=== PATIENT | female | born 1985 | race Caucasian/White ===

== ENCOUNTER 2017-12-02 18:20 | Emergency (ER) | payer SELFPAY ==
[2017-12-02] MEDS ORDERED: ONDANSETRON HCL INJ/PF 4 MG/2 ML SDV IV ONE (19:11)
[2017-12-02] MEDS ORDERED: MORPHINE SULFATE 10 MG/ML INJ IV ONE (19:11)
[2017-12-02] MEDS ORDERED: NORMAL SALINE 1000 ML 1,000 ML IV PRN (19:11)
--- NOTE | 2017-12-02 19:13 | ER Document Report ---
ED Medical Screen (RME) - General Chief Complaint: Vaginal Bleeding Stated Complaint: VAGINAL BLEEDING Time Seen by Provider: 12/02/17 19:06 Notes: 32 years old female presents today with 15 days. Prior to that she had regular. Comes on on time last for about 4-5 days. Never had this extensive bleeding. The bleeding is associated with lower abdominal cramp. She has history of anemia. Feeling lightheaded and dizzy. On examination-conjunctivae is normal is not pale. Abdomen is nontender. TRAVEL OUTSIDE OF THE [place] IN LAST 30 DAYS: No - Related Data Allergies/Adverse Reactions: levofloxacin [From Levaquin] Allergy (Severe, Verified 12/02/17 18:22) Anaphylaxis Sulfa (Sulfonamide Antibiotics) Allergy (Severe, Verified 12/02/17 18:22) Anaphylaxis tramadol [Tramadol] Allergy (Severe, Verified 12/02/17 18:22) anaphylaxis, hives citalopram hydrobromide [From Celexa] Allergy (Mild, Verified 12/02/17 18:22) latex [Latex] Allergy (Mild, Verified 12/02/17 18:22) Urticaria quetiapine fumarate [From Seroquel] Allergy (Mild, Verified 12/02/17 18:22) Lock jaw trazodone [Trazodone] Allergy (Mild, Verified 12/02/17 18:22) Lock jaw eszopiclone [From Lunesta] Allergy (Verified 12/02/17 18:22) meperidine HCl [From Mepergan] Allergy (Verified 12/02/17 18:22) promethazine HCl [From Mepergan] Allergy (Verified 12/02/17 18:22) aspirin [Aspirin] Adverse Reaction (Mild, Verified 12/02/17 18:22) "thins her blood" per pt. ibuprofen [From Motrin] Adverse Reaction (Mild, Verified 12/02/17 18:22) upset stomach NSAIDS (Non-Steroidal Anti-Inflamma [Nsaids] Adverse Reaction (Mild, Verified 18:22) Nausea Past Medical History - General Last Menstrual Period: continues - Social History Chew tobacco use (# tins/day): No Frequency of alcohol use: Rare Drug Abuse: Marijuana - Past Medical History Cardiac Medical History: Reports: Hx Hypertension Denies: Hx Atrial Fibrillation, Hx Coronary Artery Disease, Hx Heart Attack Pulmonary Medical History: Denies: Hx Asthma, Hx Bronchitis, Hx COPD, Hx Pneumonia Neurological Medical History: Denies: Hx Cerebrovascular Accident, Hx Seizures Renal/ Medical History: Reports: Hx Kidney Stones, Hx Ovarian Cysts. Denies: Hx Peritoneal Dialysis GI Medical History: Reports: Hx Diverticulitis, Hx Gastroesophageal Reflux Disease Musculoskeltal Medical History: Denies Hx Arthritis Psychiatric Medical History: Reports: Hx Anxiety, Hx Attention Deficit Hyperactivity Disorder, Hx Bipolar Disorder, Hx Depression Past Surgical History: Reports: Hx Section, Hx Cholecystectomy, Hx Kidney (Renal Surgery) - cystoscopy, lithotripsy, Hx Tubal Ligation - Immunizations Immunizations up to date: Yes Hx Diphtheria, Pertussis, Tetanus Vaccination: Yes Physical Exam - Vital signs Vitals: Temp Pulse Resp BP Pulse Ox 98.4 F 93 16 120/83 100 12/02/17 18:35 12/02/17 18:35 12/02/17 18:35 12/02/17 18:35 12/02/17 18:35 Course - Vital Signs Vital signs: Temp Pulse Resp BP Pulse Ox 98.4 F 93 16 120/83 100 12/02/17 18:35 12/02/17 18:35 12/02/17 18:35 12/02/17 18:35 12/02/17 18:35 Doctor's Discharge - Discharge Referrals: JÚNIOR CAZARES MD [Primary Care Provider] - Follow up as needed
[2017-12-02 19:30] LABS: ABSOLUTE BASOPHILS # (AUTO) 0.1 10^3/uL (0.0-0.2); ABSOLUTE EOSINOPHILS # (AUTO) 0.1 10^3/uL (0.0-0.6); ABSOLUTE LYMPHOCYTES (AUTO) 2.7 10^3/uL (0.5-4.7); ABSOLUTE MONOCYTES (AUTO) 0.6 10^3/uL (0.1-1.4); ABSOLUTE NEUT (AUTO) 5.3 10^3/uL (1.7-8.2); BASOPHILS % (AUTO) 0.7 % (0-2); HEMATOCRIT 34.6 % (36.0-47.0); HEMOGLOBIN 12.1 g/dL (12.0-15.5); LYMPHOCYTES % (AUTO) 30.8 % (13-45); MEAN CORPUSCULAR VOLUME 89 fl (80-97); MONOCYTES % (AUTO) 6.7 % (3-13); PLATELET COUNT 391 10^3/uL (150-450); RED BLOOD COUNT 3.91 10^6/uL (3.72-5.28); RED CELL DISTRIBUTION WIDTH 13.2 % (11.5-14.0); SEGMENTED NEUTROPHILS % (AUTO) 60.8 % (42-78); TOTAL CELLS COUNTED % (AUTO) 100 %; WHITE BLOOD COUNT 8.7 10^3/uL (4.0-10.5)
[2017-12-02 19:49] LABS: ALANINE AMINOTRANSFERASE 24 U/L (9-52); ALBUMIN 4.6 g/dL (3.5-5.0); ALKALINE PHOSPHATASE 82 U/L (38-126); ANION GAP 9 (5-19); ASPARTATE AMINO TRANSFERASE 14 U/L (14-36); BILIRUBIN,DIRECT 0.3 mg/dL (0.0-0.4); BILIRUBIN,TOTAL 0.3 mg/dL (0.2-1.3); BLOOD UREA NITROGEN 11 mg/dL (7-20); CALCIUM 9.4 mg/dL (8.4-10.2); CARBON DIOXIDE 27 mmol/L (22-30); CHLORIDE 102 mmol/L (98-107); GLUCOSE 86 mg/dL (75-110); POTASSIUM 4.3 mmol/L (3.6-5.0); TOTAL PROTEIN 7.7 g/dL (6.3-8.2)
--- NOTE | 2017-12-02 20:18 | ER Document Report ---
ED GI/ - General Chief Complaint: Vaginal Bleeding Stated Complaint: VAGINAL BLEEDING Time Seen by Provider: 12/02/17 19:06 Mode of Arrival: Ambulatory Information source: Patient Notes: Patient is a 32-year-old female who presents with chief complaint of vaginal bleeding. Patient reports that she started her period on 11/17 and continues to bleed heavier than usual. Patient states she normally has regular periods that last 5-7 days. Patient has low abdominal cramping more so to the left side with occasional pains on the right. Patient states she feels a heaviness in her. Patient denies any nausea, vomiting, chills or fever. Past surgical history includes tubal ligation, x1, cholecystectomy and lithotripsy. TRAVEL OUTSIDE OF THE [place] IN LAST 30 DAYS: No - Related Data Allergies/Adverse Reactions: levofloxacin [From Levaquin] Allergy (Severe, Verified 12/02/17 18:22) Anaphylaxis Sulfa (Sulfonamide Antibiotics) Allergy (Severe, Verified 12/02/17 18:22) Anaphylaxis tramadol [Tramadol] Allergy (Severe, Verified 12/02/17 18:22) anaphylaxis, hives citalopram hydrobromide [From Celexa] Allergy (Mild, Verified 12/02/17 18:22) latex [Latex] Allergy (Mild, Verified 12/02/17 18:22) Urticaria quetiapine fumarate [From Seroquel] Allergy (Mild, Verified 12/02/17 18:22) Lock jaw trazodone [Trazodone] Allergy (Mild, Verified 12/02/17 18:22) Lock jaw eszopiclone [From Lunesta] Allergy (Verified 12/02/17 18:22) meperidine HCl [From Mepergan] Allergy (Verified 12/02/17 18:22) promethazine HCl [From Mepergan] Allergy (Verified 12/02/17 18:22) aspirin [Aspirin] Adverse Reaction (Mild, Verified 12/02/17 18:22) "thins her blood" per pt. ibuprofen [From Motrin] Adverse Reaction (Mild, Verified 12/02/17 18:22) upset stomach NSAIDS (Non-Steroidal Anti-Inflamma [Nsaids] Adverse Reaction (Mild, Verified 18:22) Nausea Past Medical History - General Information source: Patient Last Menstrual Period: continues - Social History Smoking Status: Former Smoker - vape Chew tobacco use (# tins/day): No Frequency of alcohol use: Rare Drug Abuse: Marijuana Family History: Hypertension Patient has suicidal ideation: No Patient has homicidal ideation: No - Past Medical History Cardiac Medical History: Reports: Hx Hypertension Denies: Hx Atrial Fibrillation, Hx Coronary Artery Disease, Hx Heart Attack Pulmonary Medical History: Denies: Hx Asthma, Hx Bronchitis, Hx COPD, Hx Pneumonia Neurological Medical History: Denies: Hx Cerebrovascular Accident, Hx Seizures Renal/ Medical History: Reports: Hx Kidney Stones, Hx Ovarian Cysts. Denies: Hx Peritoneal Dialysis GI Medical History: Reports: Hx Diverticulitis, Hx Gastroesophageal Reflux Disease Musculoskeletal Medical History: Denies Hx Arthritis Psychiatric Medical History: Reports: Hx Anxiety, Hx Attention Deficit Hyperactivity Disorder, Hx Bipolar Disorder, Hx Depression Past Surgical History: Reports: Hx Section, Hx Cholecystectomy, Hx Kidney (Renal Surgery) - cystoscopy, lithotripsy, Hx Tubal Ligation - Immunizations Immunizations up to date: Yes Hx Diphtheria, Pertussis, Tetanus Vaccination: Yes Hx Pneumococcal Vaccination: 05/06/11 Review of Systems - Review of Systems Gastrointestinal: Other - Low abdominal cramping Female Genitourinary: Heavy/abnormal periods -: Yes All other systems reviewed and negative Physical Exam - Vital signs Vitals: Temp Pulse Resp BP Pulse Ox 98.4 F 93 16 120/83 100 12/02/17 18:35 12/02/17 18:35 12/02/17 18:35 12/02/17 18:35 12/02/17 18:35 - Notes Notes: PHYSICAL EXAMINATION: GENERAL: Well-appearing, well-nourished and in no acute distress. HEAD: Atraumatic, normocephalic. EYES: Pupils equal round and reactive to light, extraocular movements intact, conjunctiva are normal. ENT: Nares patent, oropharynx clear without exudates. Moist mucous membranes. NECK: Normal range of motion, supple without lymphadenopathy LUNGS: Breath sounds clear to auscultation bilaterally and equal. No wheezes rales or rhonchi. HEART: Regular rate and rhythm without murmurs ABDOMEN: Soft, nontender, nondistended abdomen. No guarding, no rebound. No masses appreciated. Female : No CVA tenderness. Musculoskeletal: Normal range of motion, no pitting or edema. No cyanosis. NEUROLOGICAL: Cranial nerves grossly intact. Normal speech, normal gait. Normal sensory, motor exams PSYCH: Normal mood, normal affect. SKIN: Warm, Dry, normal turgor, no rashes or lesions noted. Course - Re-evaluation Re-evalutation: Hemoglobin 12, hematocrit 34. Comprehensive metabolic panel is within normal limits. HCG is negative. Transvaginal ultrasound with no acute findings. Patient is not actively bleeding at this time. Patient will be discharged home in stable condition with instructions to have close follow-up with [facility]. - Vital Signs Vital signs: Temp Pulse Resp BP Pulse Ox 98.3 F 85 18 125/75 100 12/02/17 23:20 12/02/17 23:20 12/02/17 23:20 12/02/17 23:20 12/02/17 23:20 - Laboratory Result Diagrams: 12/02/17 19:24 12/02/17 19:24 Laboratory results interpreted by me: 12/02/17 12/02/17 19:24 21:05 Hct 34.6 L Urine Blood LARGE H Ur Leukocyte Esterase SMALL H Discharge - Discharge Clinical Impression: Vaginal bleeding Condition: Stable Disposition: HOME, SELF-CARE Additional Instructions: Vaginal Bleeding You are having an episode of abnormal bleeding. Causes of abnormal vaginal bleeding can include miscarriage or tubal , tumors such as cancer or benign fibroids, medication effects, or hormone imbalance. Testing can eliminate unsuspected , tumors, or infection as a cause. "Dysfunctional uterine bleeding" is due to hormone imbalance, and is especially common at times when the normal cycle is disturbed -- whether by recent , use of control pills or hormones, or impending menopause. If the bleeding is innocent, most commonly a short course of hormones is given to restore the uterus to normal. Sometimes, the normal menstrual cycle corrects itself naturally. Sometimes , brief hormone therapy, or even a D&C is required. Your physician will advise you. Treatment for anemia may be required if bleeding is severe. You should rest and avoid intercourse until the bleeding is controlled. Call the doctor or return for re-examination if you feel faint, have increasing pain, or have a major increase in the amount of bleeding. Your ultrasound today was normal. Your blood work was also normal, your blood counts look good. Please follow-up with a [facility] or the health department for the abnormal vaginal bleeding. Please return to the emergency department if you start soaking through more than 1 pad per hour, become faint or feel weak. Referrals: JÚNIOR CAZARES MD [Primary Care Provider] - Follow up as needed
[2017-12-02 21:28] LABS: APPEARANCE,URINE SLIGHTLY-CLOUDY; BILIRUBIN,URINE NEGATIVE (NEGATIVE); COLOR,URINE YELLOW; GLUCOSE, URINE NEGATIVE (NEGATIVE); KETONES,URINE NEGATIVE (NEGATIVE); LEUKOCYTE ESTERASE,URINE SMALL (NEGATIVE); NITRITE,URINE NEGATIVE (NEGATIVE); PROTEIN,URINE NEGATIVE (NEGATIVE); URINE SPECIFIC GRAVITY 1.011; UROBILINOGEN,URINE NEGATIVE mg/dL (<2.0)
--- NOTE | 2017-12-02 22:56 | RADIOLOGY REPORT (SQ) ---
US TRANSVAGINAL HISTORY: Vaginal bleeding. COMPARISON: None. TECHNIQUE: Grayscale and color Doppler transvaginal ultrasound of the pelvis was performed. FINDINGS: The uterus is anteverted and measures 8.4 x 4.3 cm. The endometrium measures 3 mm in thickness. Cervix is closed and measures 3 cm in length. Ovaries are not visualized due to peristaltic bowel. No free fluid is seen in the pelvis. IMPRESSION: Unremarkable uterus. Closed cervix. Ovaries not visualized.
[2017-12-02 23:31] VITALS: BP 125/75
== END 2017-12-02 23:16 | disposition home or self-care (01) ==
LOC: ER 18:20
DX: N93.8 Other specified abnormal uterine and vaginal bleeding (principal); I10 Essential (primary) hypertension; Z88.3 Allergy status to other anti-infective agents; Z88.2 Allergy status to sulfonamides; Z91.040 Latex allergy status; Z88.6 Allergy status to analgesic agent; Z87.442 Personal history of urinary calculi; Z90.49 Acquired absence of other specified parts of digestive tract; Z98.51 Tubal ligation status
CPT/HCPCS: 99284; 96361; 96374; 96375; 36415; 84702; 85025; 81025; 80053; 81001; 76830; 93976; J2270; J2405

== ENCOUNTER 2018-08-15 20:19 | Emergency (ER) | payer SELFPAY ==
[2018-08-15 21:50] LABS: APPEARANCE,URINE CLOUDY; BILIRUBIN,URINE NEGATIVE (NEGATIVE); COLOR,URINE YELLOW; GLUCOSE, URINE NEGATIVE (NEGATIVE); KETONES,URINE NEGATIVE (NEGATIVE); LEUKOCYTE ESTERASE,URINE LARGE (NEGATIVE); NITRITE,URINE NEGATIVE (NEGATIVE); PROTEIN,URINE NEGATIVE (NEGATIVE); URINE SPECIFIC GRAVITY 1.024; UROBILINOGEN,URINE NEGATIVE mg/dL (<2.0)
[2018-08-15 22:14] LABS: ABSOLUTE EOSINOPHILS # (AUTO) 0.1 10^3/uL (0.0-0.6); ABSOLUTE LYMPHOCYTES (AUTO) 2.5 10^3/uL (0.5-4.7); ABSOLUTE MONOCYTES (AUTO) 0.5 10^3/uL (0.1-1.4); ABSOLUTE NEUT (AUTO) 2.9 10^3/uL (1.7-8.2); BASOPHILS % (AUTO) 0.6 % (0-2); EOSINOPHILS % (AUTO) 1.5 % (0-6); HEMATOCRIT 32.1 % (36.0-47.0); LYMPHOCYTES % (AUTO) 41.6 % (13-45); MEAN CORPUSCULAR HEMOGLOBIN 31.4 pg (27.0-33.4); MEAN CORPUSCULAR HGB CONC 34.2 g/dL (32.0-36.0); MEAN CORPUSCULAR VOLUME 92 fl (80-97); PLATELET COUNT 285 10^3/uL (150-450); RED BLOOD COUNT 3.49 10^6/uL (3.72-5.28); RED CELL DISTRIBUTION WIDTH 13.6 % (11.5-14.0); SEGMENTED NEUTROPHILS % (AUTO) 48.3 % (42-78); TOTAL CELLS COUNTED % (AUTO) 100 %
[2018-08-15 22:37] LABS: ALANINE AMINOTRANSFERASE 22 U/L (9-52); ALBUMIN 4.4 g/dL (3.5-5.0); ALKALINE PHOSPHATASE 63 U/L (38-126); ANION GAP 12 (5-19); ASPARTATE AMINO TRANSFERASE 19 U/L (14-36); BILIRUBIN,DIRECT 0.2 mg/dL (0.0-0.4); BILIRUBIN,TOTAL 0.2 mg/dL (0.2-1.3); BLOOD UREA NITROGEN 12 mg/dL (7-20); CALCIUM 9.4 mg/dL (8.4-10.2); CARBON DIOXIDE 25 mmol/L (22-30); CHLORIDE 103 mmol/L (98-107); GLUCOSE 83 mg/dL (75-110); POTASSIUM 3.8 mmol/L (3.6-5.0); SODIUM 140.4 mmol/L (137-145); TOTAL PROTEIN 7.1 g/dL (6.3-8.2)
[2018-08-15] MEDS ORDERED: KETOROLAC TROMETHAMINE INJ/PF 30 MG/1 ML SDV IV ONE (22:54)
[2018-08-15] MEDS ORDERED: ONDANSETRON 4 MG TAB.RAPDIS PO ONE (22:54)
[2018-08-15] MEDS ORDERED: ONDANSETRON HCL INJ/PF 4 MG/2 ML SDV IV ONE (22:55)
--- NOTE | 2018-08-15 22:57 | ER Document Report ---
ED GI/ - General Chief Complaint: Abdominal Pain Stated Complaint: LOWER ABDOMINAL PAIN,FEVER,THROWING UP Time Seen by Provider: 08/15/18 22:22 Primary Care Provider: [facility] [Provider Group] - Follow up as needed Mode of Arrival: Ambulatory Information source: Patient Notes: Patient presents complaining of lower pelvic pain that started yesterday. Patient is currently 18 days late on her menstrual cycle but does state that she did pass a small blood clot vaginally yesterday but has not had any bleeding since. Patient reports an odor to her urine and reports nausea and vomiting x2 episodes today. Patient complains of vaginal discomfort. TRAVEL OUTSIDE OF THE [place] IN LAST 30 DAYS: No - HPI Patient complains to provider of: Pelvic pain, Vaginal pain. No: Vomiting Onset: Yesterday Timing/Duration: Gradual Quality of pain: Sharp Pain Level: 4 Location: Vaginal Vaginal bleeding (Compared to normal period): None Menstrual period history: Irregular Sexual history: Active Associated symptoms: Nausea, Radiates to vagina. denies: Fever, Urinary hesit ronal, Urinary frequency, Urinary retention, Vaginal discharge, Vomiting Exacerbated by: Denies Relieved by: Denies Similar symptoms previously: No Recently seen / treated by doctor: No - Related Data Allergies/Adverse Reactions: levofloxacin [From Levaquin] Allergy (Severe, Verified 08/15/18 20:33) Anaphylaxis Sulfa (Sulfonamide Antibiotics) Allergy (Severe, Verified 08/15/18 20:33) Anaphylaxis tramadol [Tramadol] Allergy (Severe, Verified 08/15/18 20:33) anaphylaxis, hives citalopram hydrobromide [From Celexa] Allergy (Mild, Verified 08/15/18 20:33) latex [Latex] Allergy (Mild, Verified 08/15/18 20:33) Urticaria quetiapine fumarate [From Seroquel] Allergy (Mild, Verified 08/15/18 20:33) Lock jaw trazodone [Trazodone] Allergy (Mild, Verified 08/15/18 20:33) Lock jaw eszopiclone [From Lunesta] Allergy (Verified 08/15/18 20:33) meperidine HCl [From Mepergan] Allergy (Verified 08/15/18 20:33) promethazine HCl [From Mepergan] Allergy (Verified 08/15/18 20:33) aspirin [Aspirin] Adverse Reaction (Mild, Verified 08/15/18 20:33) "thins her blood" per pt. ibuprofen [From Motrin] Adverse Reaction (Mild, Verified 08/15/18 20:33) upset stomach NSAIDS (Non-Steroidal Anti-Inflamma [Nsaids] Adverse Reaction (Mild, Verified 08/15/18 20:33) Nausea Past Medical History - General Information source: Patient - Social History Smoking Status: Current Every Day Smoker Frequency of alcohol use: Occasional Drug Abuse: None Occupation: None Family History: Hypertension Renal/ Medical History: Reports: Hx Kidney Stones, Hx Ovarian Cysts. Denies: Hx Peritoneal Dialysis GI Medical History: Reports: Hx Diverticulitis, Hx Gastroesophageal Reflux Disease Musculoskeletal Medical History: Denies Hx Arthritis Psychiatric Medical History: Reports: Hx Anxiety, Hx Attention Deficit Hyperactivity Disorder, Hx Bipolar Disorder, Hx Depression Past Surgical History: Reports: Hx Section, Hx Cholecystectomy, Hx Kidney (Renal Surgery) - cystoscopy, lithotripsy, Hx Tubal Ligation - Immunizations Immunizations up to date: Yes Hx Diphtheria, Pertussis, Tetanus Vaccination: Yes Hx Pneumococcal Vaccination: 05/06/11 Review of Systems - Review of Systems Constitutional: No symptoms reported. denies: Fever EENT: No symptoms reported Cardiovascular: No symptoms reported. denies: Chest pain Respiratory: No symptoms reported Gastrointestinal: Abdominal pain, Nausea. denies: Vomiting Genitourinary: No symptoms reported Female Genitourinary: Irregular period, Vaginal discharge, Other - vaginal pain Musculoskeletal: No symptoms reported. denies: Back pain Skin: No symptoms reported Hematologic/Lymphatic: No symptoms reported Neurological/Psychological: No symptoms reported Physical Exam - Vital signs Vitals: Temp Pulse Resp BP Pulse Ox 98.3 F 91 14 130/83 H 100 08/15/18 20:42 08/15/18 20:42 08/15/18 20:42 08/15/18 20:42 08/15/18 20:42 - General General appearance: Appears well, Alert In distress: None - HEENT Head: Normocephalic, Atraumatic Eyes: Normal Conjunctiva: Normal Nasal: Normal Mouth/Lips: Normal Mucous membranes: Normal Neck: Normal, Supple. No: Lymphadenopathy - Respiratory Respiratory status: No respiratory distress Chest status: Nontender Breath sounds: Normal. No: Rales, Rhonchi, Stridor, Wheezing Chest palpation: Normal - Cardiovascular Rhythm: Regular Heart sounds: S1 appreciated, S2 appreciated Murmur: No - Abdominal Inspection: Normal Distension: No distension Bowel sounds: Normal Tenderness: Tender - suprapubic, pelvic - Genitourinary External exam: Normal Speculum exam: Cervix closed, Vaginal discharge Bimanuel exam: Cervical motion tender. No: Adnexal tenderness - Back Back: Normal, Nontender. No: CVA tenderness - Extremities General upper extremity: Normal inspection, Normal strength General lower extremity: Normal inspection, Normal strength - Neurological Neuro grossly intact: Yes Cognition: Normal [place] Coma Scale Eye Opening: Spontaneous Sugey Coma Scale Verbal: Oriented [place] Coma Scale Motor: Obeys Commands [place] Coma Scale Total: 15 - Psychological Associated symptoms: Normal affect, Normal mood - Skin Skin Temperature: Warm Skin Moisture: Dry Skin Color: Normal Course - Re-evaluation Re-evalutation: 08/16/18 01:04 Patient with findings worrisome for possible UTI although patient also has trichomonas which could be causing her urinary symptoms. Gonorrhea and Chlamydia test results are still pending at this time. Will cover for PID. Patient encouraged to have partner seek treatment for trichomonas as well. Patient nontoxic in appearance at this time. Good return precautions discussed. - Vital Signs Vital signs: Temp Pulse Resp BP Pulse Ox 97.8 F 79 16 113/76 100 08/16/18 01:35 08/16/18 01:35 08/16/18 01:35 08/16/18 01:35 08/16/18 01:35 - Laboratory Result Diagrams: 08/15/18 21:59 08/15/18 21:59 Laboratory results interpreted by me: 08/15/18 08/15/18 21:32 21:59 RBC 3.49 L Hgb 11.0 L Hct 32.1 L Ur Leukocyte Esterase LARGE H 08/16/18 01:04 Labs- Entire Visit 08/15/18 08/15/18 08/15/18 21:32 21:59 21:59 WBC 6.0 RBC 3.49 L Hgb 11.0 L Hct 32.1 L MCV 92 MCH 31.4 MCHC 34.2 RDW 13.6 Plt Count 285 Seg Neutrophils % 48.3 Lymphocytes % 41.6 Monocytes % 8.0 Eosinophils % 1.5 Basophils % 0.6 Absolute Neutrophils 2.9 Absolute Lymphocytes 2.5 Absolute Monocytes 0.5 Absolute Eosinophils 0.1 Absolute Basophils 0.0 Sodium 140.4 Potassium 3.8 Chloride 103 Carbon Dioxide 25 Anion Gap 12 BUN 12 Creatinine 0.53 Est GFR ( Amer) > 60 Est GFR (Non-Af Amer) > 60 Glucose 83 Calcium 9.4 Total Bilirubin 0.2 Direct Bilirubin 0.2 Neonat Total Bilirubin Not Reportable Neonat Direct Bilirubin Not Reportable Neonat Indirect Bili Not Reportable AST 19 ALT 22 Alkaline Phosphatase 63 Total Protein 7.1 Albumin 4.4 Lipase 79.0 Urine Color YELLOW Urine Appearance CLOUDY Urine pH 6.0 Ur Specific Mcgregor 1.024 Urine Protein NEGATIVE Urine Glucose (UA) NEGATIVE Urine Ketones NEGATIVE Urine Blood NEGATIVE Urine Nitrite NEGATIVE Urine Bilirubin NEGATIVE Urine Urobilinogen NEGATIVE Ur Leukocyte Esterase LARGE H Urine WBC (Auto) 10 Urine RBC (Auto) 12 Urine Bacteria (Auto) TRACE Squamous Epi Cells Auto 6 Urine Mucus (Auto) RARE Urine Ascorbic Acid NEGATIVE Urine HCG, Qual NEGATIVE Bacteria (Wet Prep) Trichomonas (Wet Prep) Vaginal WBC Vaginal RBC Vaginal Yeast 08/15/18 23:48 WBC RBC Hgb Hct MCV MCH MCHC RDW Plt Count Seg Neutrophils % Lymphocytes % Monocytes % Eosinophils % Basophils % Absolute Neutrophils Absolute Lymphocytes Absolute Monocytes Absolute Eosinophils Absolute Basophils Sodium Potassium Chloride Carbon Dioxide Anion Gap BUN Creatinine Est GFR ( Amer) Est GFR (Non-Af Amer) Glucose Calcium Total Bilirubin Direct Bilirubin Neonat Total Bilirubin Neonat Direct Bilirubin Neonat Indirect Bili AST ALT Alkaline Phosphatase Total Protein Albumin Lipase Urine Color Urine Appearance Urine pH Ur Specific Mcgregor Urine Protein Urine Glucose (UA) Urine Ketones Urine Blood Urine Nitrite Urine Bilirubin Urine Urobilinogen Ur Leukocyte Esterase Urine WBC (Auto) Urine RBC (Auto) Urine Bacteria (Auto) Squamous Epi Cells Auto Urine Mucus (Auto) Urine Ascorbic Acid Urine HCG, Qual Bacteria (Wet Prep) 3+ BACTERIA SEEN Trichomonas (Wet Prep) TRICHOMONAS SEEN Vaginal WBC 1+ WBCS SEEN Vaginal RBC NO RBCS SEEN Vaginal Yeast NO YEAST SEEN - Diagnostic Test Radiology reviewed: Reports reviewed Discharge - Discharge Clinical Impression: PID (acute pelvic inflammatory disease), Trichomonas infection Nausea & vomiting Qualifiers: Vomiting type: unspecified Vomiting Intractability: non-intractable Qualified Code(s): R11.2 - Nausea with vomiting, unspecified Condition: Stable Disposition: HOME, SELF-CARE Instructions: Abdominal Pain ([facility]), Antinausea Medication ([facility]), Doxycycline ([facility]), Metronidazole ([facility]), Pelvic Inflammatory Disease ([facility]), Rocephin ([facility]), Trichomonas Infection ([facility]), Vomiting ([facility]) Additional Instructions: Return immediately for any new or worsening symptoms Followup with your primary care provider, call tomorrow to make a followup appointment Have partner seek treatment for trichomonas infection Gonorrhea and Chlamydia tests are still pending at this time, we will call for any abnormal results. Prescriptions: Doxycycline Hyclate 100 mg PO BID #28 capsule Metronidazole [Flagyl 500 mg Tablet] 500 mg PO BID #28 tablet Ondansetron HCl [Zofran 4 mg Tablet] 1 - 2 tab PO Q6 PRN #15 tablet PRN Reason: Referrals: [facility] [Provider Group] - Follow up as needed
[2018-08-15] MEDS ORDERED: CEFTRIAXONE 1 GM/D5W RTU 1 GM/50 ML RTUPB IV ONE (23:53)
[2018-08-15] MEDS ORDERED: DOXYCYCLINE HYCLATE 100 MG TABLET PO ONE (23:54)
--- NOTE | 2018-08-15 23:57 | RADIOLOGY REPORT (SQ) ---
EXAM DESCRIPTION: US PELVIS TRANSVAGINAL COMPLETED DATE/TME: 08/15/2018 22:54 CLINICAL HISTORY: 33 years Female, pelvic pain. LMP unknown. COMPARISON: 12/02/2017 TECHNIQUE: Complete pelvic ultrasound obtained with transvaginal imaging. FINDINGS: Uterus: The uterus measures 8.8 x 5.3 x 4.4 cm. No myometrial abnormalities. Endometrium: Endometrial thickness of 0.5 cm. No endometrial heterogeneity or fluid collection identified. Right ovary: The right ovary is not identified due to overlying structures. Left ovary: The left ovary measures 3.1 x 1.6 x 2.3 cm. Adnexa: No large adnexal masses. Free fluid: Small amount of free pelvic fluid. Duplex imaging: Color and spectral Doppler imaging demonstrates blood flow in the left ovary. IMPRESSION: 1. Small amount of free pelvic fluid. This is nonspecific and may be physiologic. 2. The right ovary is not identified due to overlying structures.
[2018-08-16 00:20] LABS: T.VAGINALIS (WET MOUNT) TRICHOMONAS SEEN; WBCS (WET MOUNT) 1+ WBCS SEEN; YEAST (WET MOUNT) NO YEAST SEEN
[2018-08-16 00:21] LABS: BACTERIA (WET MOUNT) 3+ BACTERIA SEEN; RBCS (WET MOUNT) NO RBCS SEEN
[2018-08-16] MEDS ORDERED: METRONIDAZOLE 500 MG TABLET PO ONE (01:04)
[2018-08-16 01:37] VITALS: BP 113/76
[2018-08-16 03:18] LABS: CHLAM PCR NOT DETECTED (NOT DETECT); GON PCR NOT DETECTED (NOT DETECT)
== END 2018-08-16 01:37 | disposition home or self-care (01) ==
LOC: ER 20:19
DX: N73.0 Acute parametritis and pelvic cellulitis (principal); A59.00 Urogenital trichomoniasis, unspecified; R11.2 Nausea with vomiting, unspecified; R10.30 Lower abdominal pain, unspecified; F17.200 Nicotine dependence, unspecified, uncomplicated; Z90.49 Acquired absence of other specified parts of digestive tract; Z98.51 Tubal ligation status; Z87.442 Personal history of urinary calculi; Z88.6 Allergy status to analgesic agent; Z88.2 Allergy status to sulfonamides; Z91.040 Latex allergy status
CPT/HCPCS: 99284; 96375; 96365; 36415; 87210; 83690; 85025; 81025; 80053; 81001; 87491; 87591; 76830; 93976; J1885; J0696

== ENCOUNTER 2019-03-02 05:24 | Emergency (ER) | payer SELFPAY ==
[2019-03-02 06:45] LABS: APPEARANCE,URINE TURBID; BILIRUBIN,URINE NEGATIVE (NEGATIVE); COLOR,URINE AMBER; GLUCOSE, URINE NEGATIVE (NEGATIVE); KETONES,URINE TRACE mg/dL (NEGATIVE); LEUKOCYTE ESTERASE,URINE SMALL (NEGATIVE); NITRITE,URINE NEGATIVE (NEGATIVE); PROTEIN,URINE 100 mg/dL (NEGATIVE); URINE SPECIFIC GRAVITY 1.021; UROBILINOGEN,URINE NEGATIVE mg/dL (<2.0)
[2019-03-02 06:46] LABS: ABSOLUTE BASOPHILS # (AUTO) 0.1 10^3/uL (0.0-0.2); ABSOLUTE EOSINOPHILS # (AUTO) 0.1 10^3/uL (0.0-0.6); ABSOLUTE LYMPHOCYTES (AUTO) 2.5 10^3/uL (0.5-4.7); ABSOLUTE MONOCYTES (AUTO) 0.6 10^3/uL (0.1-1.4); BASOPHILS % (AUTO) 0.6 % (0-2); EOSINOPHILS % (AUTO) 0.9 % (0-6); HEMOGLOBIN 12.7 g/dL (12.0-15.5); MEAN CORPUSCULAR HEMOGLOBIN 31.9 pg (27.0-33.4); MEAN CORPUSCULAR HGB CONC 35.2 g/dL (32.0-36.0); MEAN CORPUSCULAR VOLUME 91 fl (80-97); MONOCYTES % (AUTO) 6.9 % (3-13); PLATELET COUNT 293 10^3/uL (150-450); RED BLOOD COUNT 3.97 10^6/uL (3.72-5.28); RED CELL DISTRIBUTION WIDTH 12.9 % (11.5-14.0); SEGMENTED NEUTROPHILS % (AUTO) 64.6 % (42-78); TOTAL CELLS COUNTED % (AUTO) 100 %; WHITE BLOOD COUNT 9.2 10^3/uL (4.0-10.5)
[2019-03-02 07:03] LABS: ALBUMIN 4.4 g/dL (3.5-5.0); ALKALINE PHOSPHATASE 63 U/L (38-126); ANION GAP 10 (5-19); ASPARTATE AMINO TRANSFERASE 18 U/L (14-36); BILIRUBIN,DIRECT 0.2 mg/dL (0.0-0.4); BILIRUBIN,TOTAL 0.7 mg/dL (0.2-1.3); BLOOD UREA NITROGEN 17 mg/dL (7-20); CALCIUM 9.4 mg/dL (8.4-10.2); CARBON DIOXIDE 27 mmol/L (22-30); CHLORIDE 100 mmol/L (98-107); GLUCOSE 85 mg/dL (75-110); POTASSIUM 4.3 mmol/L (3.6-5.0); TOTAL PROTEIN 7.3 g/dL (6.3-8.2)
--- NOTE | 2019-03-02 11:32 | ER Document Report ---
ED General - General Chief Complaint: Flank Pain Stated Complaint: LEFT FLANK PAIN Time Seen by Provider: 03/02/19 11:11 Primary Care Provider: SREEDHAR PERES MD [Primary Care Provider] - Follow up as needed Notes: 33-year-old female presents for left flank pain for the past few days. Patient denies any injury or trauma. Patient denies any urinary symptoms or nausea/vomiting/diarrhea. Patient states kidney infection and kidney stones and this does not feel similar. TRAVEL OUTSIDE OF THE [place] IN LAST 30 DAYS: No - Related Data Allergies/Adverse Reactions: levofloxacin [From Levaquin] Allergy (Severe, Verified 08/15/18 20:33) Anaphylaxis Sulfa (Sulfonamide Antibiotics) Allergy (Severe, Verified 08/15/18 20:33) Anaphylaxis tramadol [Tramadol] Allergy (Severe, Verified 08/15/18 20:33) anaphylaxis, hives citalopram hydrobromide [From Celexa] Allergy (Mild, Verified 08/15/18 20:33) latex [Latex] Allergy (Mild, Verified 08/15/18 20:33) Urticaria quetiapine fumarate [From Seroquel] Allergy (Mild, Verified 08/15/18 20:33) Lock jaw trazodone [Trazodone] Allergy (Mild, Verified 08/15/18 20:33) Lock jaw eszopiclone [From Lunesta] Allergy (Verified 08/15/18 20:33) meperidine HCl [From Mepergan] Allergy (Verified 08/15/18 20:33) promethazine HCl [From Mepergan] Allergy (Verified 08/15/18 20:33) aspirin [Aspirin] Adverse Reaction (Mild, Verified 08/15/18 20:33) "thins her blood" per pt. ibuprofen [From Motrin] Adverse Reaction (Mild, Verified 08/15/18 20:33) upset stomach NSAIDS (Non-Steroidal Anti-Inflamma [Nsaids] Adverse Reaction (Mild, Verified 08/15/18 20:33) Nausea Home Medications: lexapro,gabapentin Past Medical History - Social History Smoking Status: Current Every Day Smoker Frequency of alcohol use: None Drug Abuse: Marijuana, Methamphetamine Family History: Hypertension Patient has suicidal ideation: No Patient has homicidal ideation: No - Past Medical History Cardiac Medical History: Reports: Hx Hypertension Denies: Hx Atrial Fibrillation, Hx Coronary Artery Disease, Hx Heart Attack Pulmonary Medical History: Denies: Hx Asthma, Hx Bronchitis, Hx COPD, Hx Pneumonia Neurological Medical History: Denies: Hx Cerebrovascular Accident, Hx Seizures Renal/ Medical History: Reports: Hx Kidney Stones, Hx Ovarian Cysts. Denies: Hx Peritoneal Dialysis GI Medical History: Reports: Hx Diverticulitis, Hx Gastroesophageal Reflux Disease Musculoskeletal Medical History: Denies Hx Arthritis Psychiatric Medical History: Reports: Hx Anxiety, Hx Attention Deficit Hyperactivity Disorder, Hx Bipolar Disorder, Hx Depression Past Surgical History: Reports: Hx Section, Hx Cholecystectomy, Hx Kidney (Renal Surgery) - cystoscopy, lithotripsy, Hx Tubal Ligation - Immunizations Immunizations up to date: Yes Hx Diphtheria, Pertussis, Tetanus Vaccination: Yes Hx Pneumococcal Vaccination: 05/06/11 Review of Systems - Review of Systems Notes: Constitutional: Negative for fever. HENT: Negative for sore throat. Eyes: Negative for visual changes. Cardiovascular: Negative for chest pain. Respiratory: Negative for shortness of breath. Gastrointestinal: Positive for flank pain. Negative for abdominal pain, vo miting or diarrhea. Genitourinary: Negative for dysuria. Musculoskeletal: Negative for back pain. Skin: Negative for rash. Neurological: Negative for headaches, weakness or numbness. 10 point ROS negative except as marked above and in HPI. Physical Exam - Vital signs Vitals: Temp Pulse Resp BP Pulse Ox 97.6 F 80 18 108/73 98 03/02/19 05:33 03/02/19 05:33 03/02/19 05:33 03/02/19 05:33 03/02/19 05:33 - Notes Notes: GENERAL: Well-appearing, well-nourished and in no acute distress. HEAD: Atraumatic, normocephalic. EYES: Extraocular movements intact, sclera anicteric, conjunctiva are normal. NECK: Normal range of motion, supple without lymphadenopathy or JVD. ABDOMEN: Soft, nontender. No guarding, no rebound. No masses appreciated. No CVA tenderness. BACK: No spinal tenderness. EXTREMITIES: Normal range of motion, no pitting or edema. No clubbing or cy anosis. NEUROLOGICAL: Cranial nerves II through XII grossly intact. Normal speech, normal gait. PSYCH: Normal mood, normal affect. SKIN: Warm, Dry, normal turgor, no rashes or lesions noted. Course - Re-evaluation Re-evalutation: 03/02/19 33-year-old female presents for left flank pain for the past few days. Patient denies any associated urinary symptoms, nausea/vomiting/diarrhea, abdominal pain, fever. Abdomen soft nontender. Patient is afebrile. No spinal tenderness. No CVA tenderness. Vitals are otherwise reassuring. Patient's urine does not indicate a urinary tract infection or show any blood. CBC, CMP are unremarkable/within normal limits. Most likely musculoskeletal in nature. Based off of history and physical does not warrant any imaging at this time. Patient given prescription for ibuprofen and follow-up with PCP. Return precautions given. Patient voices understanding and agrees with plan of care. - Vital Signs Vital signs: Temp Pulse Resp BP Pulse Ox 98.1 F 82 17 117/72 97 03/02/19 09:18 03/02/19 09:18 03/02/19 09:18 03/02/19 09:18 03/02/19 09:18 - Laboratory Result Diagrams: 03/02/19 06:22 03/02/19 06:22 Laboratory results interpreted by me: 03/02/19 06:22 Urine Protein 100 H Urine Ketones TRACE H Ur Leukocyte Esterase SMALL H Discharge - Discharge Clinical Impression: Flank pain Condition: Stable Disposition: HOME, SELF-CARE Additional Instructions: Please take medications as prescribed. Please follow-up with your primary care doctor in 1 to 2 weeks. Return to ER for any worsening symptoms, including worsening flank pain, burning when you pee, blood in your urine, fever, [place] sea/vomiting/diarrhea, abdominal pain, chest pain, shortness of breath, or any other symptoms that are concerning to you. Prescriptions: Acetaminophen [Tylenol 8 Hour] 650 mg PO TID #30 tablet.er Referrals: SREEDHAR PERES MD [Primary Care Provider] - Follow up in 1 week
[2019-03-02 12:37] VITALS: BP 123/78
== END 2019-03-02 12:00 | disposition home or self-care (01) ==
LOC: ER 05:24
DX: R10.9 Unspecified abdominal pain (principal); I10 Essential (primary) hypertension; F17.200 Nicotine dependence, unspecified, uncomplicated; F12.10 Cannabis abuse, uncomplicated; F15.10 Other stimulant abuse, uncomplicated; Z87.440 Personal history of urinary (tract) infections; Z87.442 Personal history of urinary calculi; Z87.892 Personal history of anaphylaxis; Z88.1 Allergy status to other antibiotic agents; Z88.2 Allergy status to sulfonamides; Z88.6 Allergy status to analgesic agent; Z91.040 Latex allergy status; Z88.8 Allergy status to other drugs, medicaments and biological substances
CPT/HCPCS: 36415; 80053; 81001; 83690; 84703; 85025; 87086; 99284

== ENCOUNTER 2019-11-04 21:05 | Emergency (ER) | payer SELFPAY ==
[2019-11-04 21:15] VITALS: BP 124/84
--- NOTE | 2019-11-04 21:42 | ER Document Report ---
ED Medical Screen (RME) - General Chief Complaint: Abdominal Pain Stated Complaint: ABDOMINAL PAIN Time Seen by Provider: 11/04/19 21:40 Primary Care Provider: SREEDHAR PERES MD [Primary Care Provider] - Follow up as needed Information source: Patient Notes: Patient presents complaining of lower abdominal pain that started this evening. Patient reports nausea. Patient denies any vomiting or diarrhea. Patient denies any urinary symptoms. Patient does report vaginal bleeding and discharge. I have greeted and performed a rapid initial assessment of this patient. A comprehensive ED assessment and evaluation of the patient, analysis of test results and completion of the medical decision making process will be conducted by additional ED providers. TRAVEL OUTSIDE OF THE [place] IN LAST 30 DAYS: No - Related Data Allergies/Adverse Reactions: levofloxacin [From Levaquin] Allergy (Severe, Verified 08/15/18 20:33) Anaphylaxis Sulfa (Sulfonamide Antibiotics) Allergy (Severe, Verified 08/15/18 20:33) Anaphylaxis tramadol [Tramadol] Allergy (Severe, Verified 08/15/18 20:33) anaphylaxis, hives citalopram hydrobromide [From Celexa] Allergy (Mild, Verified 08/15/18 20:33) latex [Latex] Allergy (Mild, Verified 08/15/18 20:33) Urticaria quetiapine fumarate [From Seroquel] Allergy (Mild, Verified 08/15/18 20:33) Lock jaw trazodone [Trazodone] Allergy (Mild, Verified 08/15/18 20:33) Lock jaw eszopiclone [From Lunesta] Allergy (Verified 08/15/18 20:33) meperidine HCl [From Mepergan] Allergy (Verified 08/15/18 20:33) promethazine HCl [From Mepergan] Allergy (Verified 08/15/18 20:33) aspirin [Aspirin] Adverse Reaction (Mild, Verified 08/15/18 20:33) "thins her blood" per pt. ibuprofen [From Motrin] Adverse Reaction (Mild, Verified 08/15/18 20:33) upset stomach NSAIDS (Non-Steroidal Anti-Inflamma [Nsaids] Adverse Reaction (Mild, Verified 08/15/18 20:33) Nausea Past Medical History - Past Medical History Cardiac Medical History: Reports: Hx Hypertension Denies: Hx Atrial Fibrillation, Hx Coronary Artery Disease, Hx Heart Attack Pulmonary Medical History: Denies: Hx Asthma, Hx Bronchitis, Hx COPD, Hx Pneumonia Neurological Medical History: Denies: Hx Cerebrovascular Accident, Hx Seizures Renal/ Medical History: Reports: Hx Kidney Stones, Hx Ovarian Cysts. Denies: Hx Peritoneal Dialysis GI Medical History: Reports: Hx Diverticulitis, Hx Gastroesophageal Reflux Disease Musculoskeltal Medical History: Denies Hx Arthritis Psychiatric Medical History: Reports: Hx Anxiety, Hx Attention Deficit Hyperactivity Disorder, Hx Bipolar Disorder, Hx Depression Past Surgical History: Reports: Hx Section, Hx Cholecystectomy, Hx Kidney (Renal Surgery) - cystoscopy, lithotripsy, Hx Tubal Ligation - Immunizations Immunizations up to date: Yes Hx Diphtheria, Pertussis, Tetanus Vaccination: Yes Physical Exam - Vital signs Vitals: Temp Pulse Resp BP Pulse Ox 98.1 F 88 20 124/84 98 11/04/19 21:10 11/04/19 21:10 11/04/19 21:10 11/04/19 21:10 11/04/19 21:10 - Abdominal Tenderness: Tender - Lower pelvic tenderness Course - Vital Signs Vital signs: Temp Pulse Resp BP Pulse Ox 98.1 F 88 20 124/84 98 11/04/19 21:10 11/04/19 21:10 11/04/19 21:10 11/04/19 21:10 11/04/19 21:10 Doctor's Discharge - Discharge Referrals: SREEDHAR PERES MD [Primary Care Provider] - Follow up as needed
== END 2019-11-05 00:20 | disposition left against medical advice (07) ==
LOC: ER 21:05
DX: Z53.20 Procedure and treatment not carried out because of patient's decision for unspecified reasons (principal); R10.9 Unspecified abdominal pain; R10.30 Lower abdominal pain, unspecified; R11.0 Nausea; N93.9 Abnormal uterine and vaginal bleeding, unspecified; N89.8 Other specified noninflammatory disorders of vagina
CPT/HCPCS: 99281

== ENCOUNTER 2019-11-06 13:24 | Emergency (ER) | payer SELFPAY ==
--- NOTE | 2019-11-06 13:34 | ER Document Report ---
ED Medical Screen (RME) - General Chief Complaint: Numbness of Arm Stated Complaint: ARM NUMBNESS Time Seen by Provider: 11/06/19 13:29 Primary Care Provider: SREEDHAR PERES MD [Primary Care Provider] - Follow up as needed Mode of Arrival: Ambulatory Information source: Patient Notes: HPI; 34-year-old female presents to the emergency room complaining of left arm numbness left arm weakness garbled speech for the past 2 days. Denies any trauma or injury. PE: Alert and oriented x3. Moderate distress noted. Left-sided facial droop, garbled speech. Decreased sensation to left side of face as well as left upper arm. Decrease strength to left arm. Outside of window for stroke alert. Charge nurse notified of patient and symptoms. Orders placed. I have greeted and performed a rapid initial assessment of this patient. A comprehensive ED assessment and evaluation of the patient, analysis of test results and completion of the medical decision making process will be conducted by additional ED providers. I have specifically instructed the patient or family members with the patient to immediately return to any nursing staff should anything change in the patient's condition or with their chief complaint. TRAVEL OUTSIDE OF THE [place] IN LAST 30 DAYS: No - Related Data Allergies/Adverse Reactions: levofloxacin [From Levaquin] Allergy (Severe, Verified 11/06/19 13:32) Anaphylaxis Sulfa (Sulfonamide Antibiotics) Allergy (Severe, Verified 11/06/19 13:32) Anaphylaxis tramadol [Tramadol] Allergy (Severe, Verified 11/06/19 13:32) anaphylaxis, hives citalopram hydrobromide [From Celexa] Allergy (Mild, Verified 11/06/19 13:32) latex [Latex] Allergy (Mild, Verified 11/06/19 13:32) Urticaria quetiapine fumarate [From Seroquel] Allergy (Mild, Verified 11/06/19 13:32) Lock jaw trazodone [Trazodone] Allergy (Mild, Verified 11/06/19 13:32) Lock jaw eszopiclone [From Lunesta] Allergy (Verified 11/06/19 13:32) meperidine HCl [From Mepergan] Allergy (Verified 11/06/19 13:32) promethazine HCl [From Mepergan] Allergy (Verified 11/06/19 13:32) aspirin [Aspirin] Adverse Reaction (Mild, Verified 11/06/19 13:32) "thins her blood" per pt. ibuprofen [From Motrin] Adverse Reaction (Mild, Verified 11/06/19 13:32) upset stomach NSAIDS (Non-Steroidal Anti-Inflamma [Nsaids] Adverse Reaction (Mild, Verified 11/06/19 13:32) Nausea Past Medical History - Past Medical History Cardiac Medical History: Reports: Hx Hypertension Denies: Hx Atrial Fibrillation, Hx Coronary Artery Disease, Hx Heart Attack Pulmonary Medical History: Denies: Hx Asthma, Hx Bronchitis, Hx COPD, Hx Pneumonia Neurological Medical History: Denies: Hx Cerebrovascular Accident, Hx Seizures Renal/ Medical History: Reports: Hx Kidney Stones, Hx Ovarian Cysts. Denies: Hx Peritoneal Dialysis GI Medical History: Reports: Hx Diverticulitis, Hx Gastroesophageal Reflux Disease Musculoskeltal Medical History: Denies Hx Arthritis Psychiatric Medical History: Reports: Hx Anxiety, Hx Attention Deficit Hyperactivity Disorder, Hx Bipolar Disorder, Hx Depression Past Surgical History: Reports: Hx Section, Hx Cholecystectomy, Hx Kidney (Renal Surgery) - cystoscopy, lithotripsy, Hx Tubal Ligation - Immunizations Immunizations up to date: Yes Hx Diphtheria, Pertussis, Tetanus Vaccination: Yes Doctor's Discharge - Discharge Referrals: SREEDHAR PERES MD [Primary Care Provider] - Follow up as needed
--- NOTE | 2019-11-06 13:59 | RADIOLOGY REPORT (SQ) ---
EXAM DESCRIPTION: CT HEAD WITHOUT IMAGES COMPLETED DATE/TIME: 11/06/2019 1:49 pm REASON FOR STUDY: left arm numbness COMPARISON: 02/21/2010. TECHNIQUE: Axial images acquired through the brain without intravenous contrast. Images reviewed wi th bone, brain and subdural windows. Additional sagittal and coronal reconstructions were generated. Images stored on PACS. All CT scanners at this facility use dose modulation, iterative reconstruction, and/or weight based d osing when appropriate to reduce radiation dose to as low as reasonably achievable (ALARA). [facility]: Dose Right [facility]: CareDose [facility]: Dose Right [facility]: Teradose 4D [facility]: [employer] RADIATION DOSE: CT Rad equipment meets quality standard of care and radiation dose reduction techniq ues were employed. CTDIvol: 48.6 mGy. DLP: 831 mGy-cm. mGy. LIMITATIONS: None. FINDINGS: VENTRICLES: Normal size and contour. CEREBRUM: No masses. No hemorrhage. No midline shift. No evidence for acute infarction. Normal gra y/white matter differentiation. No areas of low density in the white matter. CEREBELLUM: No masses. No hemorrhage. No alteration of density. No evidence for acute infarction. EXTRAAXIAL SPACES: No fluid collections. No masses. ORBITS AND GLOBE: No intra- or extraconal masses. Normal contour of globe without masses. CALVARIUM: No fracture. PARANASAL SINUSES: No fluid or mucosal thickening. SOFT TISSUES: No mass or hematoma. OTHER: No other significant finding. IMPRESSION: NORMAL BRAIN CT WITHOUT CONTRAST. EVIDENCE OF ACUTE STROKE: NO. COMMENT: Quality ID # 436: Final reports with documentation of one or more dose reduction techniques (e.g., Automated exposure control, adjustment of the mA and/or kV according to patient size, use of iterative reconstruction technique) TECHNICAL DOCUMENTATION: JOB ID: [id number] 2010 [email or web address]- All Rights Reserved Reading location - IP/workstation name: [email or web address]
[2019-11-06 14:29] LABS: ABSOLUTE LYMPHOCYTES (AUTO) 1.9 10^3/uL (0.5-4.7); ABSOLUTE MONOCYTES (AUTO) 0.4 10^3/uL (0.1-1.4); ABSOLUTE NEUT (AUTO) 3.9 10^3/uL (1.7-8.2); BASOPHILS % (AUTO) 0.5 % (0-2); EOSINOPHILS % (AUTO) 0.5 % (0-6); HEMATOCRIT 31.7 % (36.0-47.0); LYMPHOCYTES % (AUTO) 30.1 % (13-45); MEAN CORPUSCULAR HEMOGLOBIN 30.5 pg (27.0-33.4); MEAN CORPUSCULAR HGB CONC 34.8 g/dL (32.0-36.0); MEAN CORPUSCULAR VOLUME 87 fl (80-97); PLATELET COUNT 252 10^3/uL (150-450); RED BLOOD COUNT 3.62 10^6/uL (3.72-5.28); RED CELL DISTRIBUTION WIDTH 15.2 % (11.5-14.0); SEGMENTED NEUTROPHILS % (AUTO) 61.9 % (42-78); TOTAL CELLS COUNTED % (AUTO) 100 %; WHITE BLOOD COUNT 6.4 10^3/uL (4.0-10.5)
[2019-11-06 14:41] LABS: INTERNATIONAL RATION (INR) 1.02; PROTHROMBIN TIME 13.6 SEC (11.4-15.4)
[2019-11-06 14:55] LABS: ALBUMIN 4.2 g/dL (3.5-5.0); ALKALINE PHOSPHATASE 55 U/L (38-126); ANION GAP 7 (5-19); ASPARTATE AMINO TRANSFERASE 15 U/L (14-36); BILIRUBIN,DIRECT 0.2 mg/dL (0.0-0.4); BILIRUBIN,TOTAL 0.2 mg/dL (0.2-1.3); BLOOD UREA NITROGEN 7 mg/dL (7-20); CALCIUM 8.9 mg/dL (8.4-10.2); CARBON DIOXIDE 27 mmol/L (22-30); CHLORIDE 105 mmol/L (98-107); GLUCOSE 97 mg/dL (75-110); POTASSIUM 3.9 mmol/L (3.6-5.0); TOTAL PROTEIN 6.8 g/dL (6.3-8.2)
[2019-11-06 15:50] LABS: APPEARANCE,URINE CLOUDY; BILIRUBIN,URINE NEGATIVE (NEGATIVE); COLOR,URINE YELLOW; GLUCOSE, URINE NEGATIVE (NEGATIVE); KETONES,URINE NEGATIVE (NEGATIVE); LEUKOCYTE ESTERASE,URINE NEGATIVE (NEGATIVE); NITRITE,URINE NEGATIVE (NEGATIVE); PROTEIN,URINE NEGATIVE (NEGATIVE); URINE SPECIFIC GRAVITY 1.011; UROBILINOGEN,URINE NEGATIVE mg/dL (<2.0)
[2019-11-06 16:08] LABS: URINE AMPHETAMINES SCREEN NEGATIVE; URINE BARBITURATES SCREEN NEGATIVE; URINE COCAINE SCREEN NEGATIVE; URINE METHADONE SCREEN NEGATIVE; URINE PHENCYCLIDINE SCREEN NEGATIVE
[2019-11-06 16:09] LABS: URINE BENZODIAZEPINES SCREEN UNCONFIRMED POSITIVE; URINE MARIJUANA (THC) SCREEN UNCONFIRMED POSITIVE
--- NOTE | 2019-11-06 16:26 | RADIOLOGY REPORT (SQ) ---
EXAM DESCRIPTION: CTA HEAD IMAGES COMPLETED DATE/TIME: 11/06/2019 4:16 pm REASON FOR STUDY: left arm weak/slurred speech COMPARISON: None. TECHNIQUE: Post IV contrast scanning, thin section axial imaging through the brain to evaluate the a rterial structures. Source and MIP images are saved and reviewed on PACS. Advanced 3D imaging as volume-rendering, MIPs, SSD performed? yes All CT scanners at this facility use dose modulation, iterative reconstruction, and/or weight based d osing when appropriate to reduce radiation dose to as low as reasonably achievable (ALARA). [facility]: Dose Right [facility]: CareDose [facility]: Dose Right [facility]: Teradose 4D [facility]: [employer] CONTRAST TYPE AND DOSE: contrast/concentration: Isovue 350.00 mmol/ml; Total Contrast Delivered: 70. 0 ml; Total Saline Delivered: 47.0 ml RENAL FUNCTION: BUN 7 creatinine 0.52 LIMITATIONS: None. FINDINGS: [place]: The anterior, middle, posterior cerebral arteries are all patent. No ev idence of aneurysm or focal stenosis. POSTERIOR CIRCULATION: The distal vertebral arteries are patent as is the basilar artery. No aneurysm . BRAIN: No gross enhancing lesions as visualized. The superior cerebral hemispheres are not included in the field of view. BONES: Intact as visualized. SINUSES: No fluid or mucosal thickening. OTHER: No other significant finding. IMPRESSION: NO CTA EVIDENCE OF STENOSIS OR ANEURYSM OF THE [place]. TECHNICAL DOCUMENTATION: JOB ID: [id number] Quality ID # 436: Final reports with documentation of one or more dose reduction techniques (e.g., Au tomated exposure control, adjustment of the mA and/or kV according to patient size, use of iterative reconstruction technique) 2010 [employer] All Rights Reserved Reading location - IP/workstation name: [email or web address]
--- NOTE | 2019-11-06 16:29 | RADIOLOGY REPORT (SQ) ---
EXAM DESCRIPTION: CTA NECK IMAGES COMPLETED DATE/TIME: 11/06/2019 4:17 pm REASON FOR STUDY: LEFT ARM WEAKNESS, SLURRED SPEECH COMPARISON: None. TECHNIQUE: Axial dynamic scanning technique with dynamic contrast enhancement through the extra-woodyard crane operator nial carotid and vertebral arteries. Multiplanar reconstruction. 3-D MIPS and Volume-rendered imag es acquired at the workstation and saved to PACS. Images are reviewed in soft tissue, bone, lung w indows. All CT scanners at this facility use dose modulation, iterative reconstruction, and/or weight based d osing when appropriate to reduce radiation dose to as low as reasonably achievable (ALARA). [facility]: Dose Right [facility]: CareDose [facility]: Dose Right [facility]: Teradose 4D [facility]: [employer] CONTRAST TYPE AND DOSE: 70 mL Omnipaque 350- low osmolar. RENAL FUNCTION: BUN 7 creatinine 0.52 LIMITATIONS: None. FINDINGS: AORTIC ARCH: Normal three-vessel origin. Bilateral subclavian arteries are patent. No d issection. RIGHT CAROTIDS: Patent common, internal and external carotid arteries without suggestion of significa nt stenosis or irregular plaque. No dissection. RIGHT VERTEBRAL: Patent. No dissection. LEFT CAROTIDS: Patent common, internal and external carotid arteries without suggestion of significan t stenosis or irregular plaque. No dissection. LEFT VERTEBRAL: Patent. No dissection. OTHER: No other significant finding. OTHER: 3-D reconstructions confirm findings. IMPRESSION: NORMAL CTA OF THE EXTRA-CRANIAL CAROTID AND VERTEBRAL ARTERIES. COMMENT: Quality ID #[id number]: Measurements of distal internal carotid diameter were used as the denomina tor for stenosis measurement. TECHNICAL DOCUMENTATION: JOB ID: [id number] Quality ID # 436: Final reports with documentation of one or more dose reduction techniques (e.g., Au tomated exposure control, adjustment of the mA and/or kV according to patient size, use of iterative reconstruction technique) 2010 [employer]- All Rights Reserved Reading location - IP/workstation name: [email or web address]
--- NOTE | 2019-11-06 18:00 | ER Document Report ---
ED General - General Chief Complaint: Slurred Speech Stated Complaint: ARM NUMBNESS Time Seen by Provider: 11/06/19 13:29 Primary Care Provider: SREEDHAR PERES MD [Primary Care Provider] - Follow up as needed Mode of Arrival: Ambulatory Information source: Patient TRAVEL OUTSIDE OF THE [place] IN LAST 30 DAYS: No - HPI Notes: Patient states that approximately 2 days ago she smokes marijuana. She says about 45 minutes later her hand began to "claw up" and then her head and neck also became stiff. Patient says she then began to have trouble speaking and some left-sided arm weakness. She states these have persisted until now. Yesterday her significant other called the ambulance that she was brought to the hospital however she left without being seen she states. She states she also has some left arm pain. It is constant. It radiates up the left arm. Is mild to moderate in intensity and seems to be worse with movement and better with rest. She denies any chest pain. No abdominal pain. She has some nausea but n o vomiting. No headache. - Related Data Allergies/Adverse Reactions: levofloxacin [From Levaquin] Allergy (Severe, Verified 11/06/19 13:32) Anaphylaxis Sulfa (Sulfonamide Antibiotics) Allergy (Severe, Verified 11/06/19 13:32) Anaphylaxis tramadol [Tramadol] Allergy (Severe, Verified 11/06/19 13:32) anaphylaxis, hives citalopram hydrobromide [From Celexa] Allergy (Mild, Verified 11/06/19 13:32) latex [Latex] Allergy (Mild, Verified 11/06/19 13:32) Urticaria quetiapine fumarate [From Seroquel] Allergy (Mild, Verified 11/06/19 13:32) Lock jaw trazodone [Trazodone] Allergy (Mild, Verified 11/06/19 13:32) Lock jaw eszopiclone [From Lunesta] Allergy (Verified 11/06/19 13:32) meperidine HCl [From Mepergan] Allergy (Verified 11/06/19 13:32) promethazine HCl [From Mepergan] Allergy (Verified 11/06/19 13:32) aspirin [Aspirin] Adverse Reaction (Mild, Verified 11/06/19 13:32) "thins her blood" per pt. ibuprofen [From Motrin] Adverse Reaction (Mild, Verified 11/06/19 13:32) upset stomach NSAIDS (Non-Steroidal Anti-Inflamma [Nsaids] Adverse Reaction (Mild, Verified 11/06/19 13:32) Nausea Past Medical History - General Information source: Patient - Social History Smoking Status: Current Every Day Smoker Chew tobacco use (# tins/day): No Frequency of alcohol use: None Drug Abuse: Marijuana Family History: Hypertension Patient has homicidal ideation: No - Past Medical History Cardiac Medical History: Reports: Hx Hypertension Denies: Hx Atrial Fibrillation, Hx Coronary Artery Disease, Hx Heart Attack Pulmonary Medical History: Denies: Hx Asthma, Hx Bronchitis, Hx COPD, Hx Pneumonia Neurological Medical History: Denies: Hx Cerebrovascular Accident, Hx Seizures Renal/ Medical History: Reports: Hx Kidney Stones, Hx Ovarian Cysts. Denies: Hx Peritoneal Dialysis GI Medical History: Reports: Hx Diverticulitis, Hx Gastroesophageal Reflux Disease Musculoskeletal Medical History: Denies Hx Arthritis Psychiatric Medical History: Reports: Hx Anxiety, Hx Attention Deficit Hyperactivity Disorder, Hx Bipolar Disorder, Hx Depression Past Surgical History: Reports: Hx Section, Hx Cholecystectomy, Hx Kidney (Renal Surgery) - cystoscopy, lithotripsy, Hx Tubal Ligation - Immunizations Immunizations up to date: Yes Hx Diphtheria, Pertussis, Tetanus Vaccination: Yes Hx Pneumococcal Vaccination: 05/06/11 Review of Systems - Review of Systems Constitutional: denies: Chills, Fever Cardiovascular: denies: Chest pain, Palpitations Respiratory: denies: Cough, Short of breath Physical Exam - Vital signs Vitals: Pulse Resp BP Pulse Ox 73 15 147/98 H 99 11/06/19 13:25 11/06/19 13:25 11/06/19 13:25 11/06/19 13:25 Interpretation: Normal - General General appearance: Appears well, Alert - HEENT Head: Normocephalic, Atraumatic Eyes: Normal Pupils: PERRL - Respiratory Respiratory status: No respiratory distress Chest status: Nontender Breath sounds: Normal Chest palpation: Normal - Cardiovascular Rhythm: Regular Heart sounds: Normal auscultation Murmur: No - Abdominal Inspection: Normal Distension: No distension Bowel sounds: Normal Tenderness: Nontender Organomegaly: No organomegaly - Back Back: Normal, Nontender - Extremities General upper extremity: Normal inspection, Nontender, Normal color, Normal ROM, Normal temperature General lower extremity: Normal inspection, Nontender, Normal color, Normal ROM, Normal temperature, Normal weight bearing. No: Wilson's sign - Neurological Neuro grossly intact: Yes Cognition: Normal Orientation: AAOx4 [place] Coma Scale Eye Opening: Spontaneous [place] Coma Scale Verbal: Oriented [place] Coma Scale Motor: Obeys Commands [place] Coma Scale Total: 15 Speech: Other - Patient does not have a clear aphasia. Patient has stuttering and pauses in between words. Cranial nerves: Normal Cerebellar coordination: Other - Patient states that she cannot move her left arm enough to do the [id number]. No evidence of any deficits on the right upper extremity. Additional motor exam normals: Weakness - Patient's legs had equal strength bilaterally and she could hold both of them off of the bed without problem to account 10. Patient's right arm she can hold up to a count of 10 however patient states she is unable to lift her left arm off the bed. She was able to wiggle all fingers on the left hand. When I tried to lift the patient's left a rm up to help her I could feel that she was actively pushing towards the bed. Sensory: Normal - Psychological Associated symptoms: Normal affect, Normal mood - Skin Skin Temperature: Warm Skin Moisture: Dry Skin Color: Normal Course - Re-evaluation Re-evalutation: 11/06/19 17:58 Patient presents with 48 hours of left arm weakness and trouble speaking. This seems most consistent to me with a conversion disorder patient's speech deficit has a stuttering pattern and not an aphasic pattern. Patient's left arm is now feeling stronger and patient was actively pushing against the bed when I tried to raise it. In addition the patient had an infarct that affected both the spee ch area as well as the left arm motor area I would expect that there would have been some abnormality present on the CTA of the head and neck however these were normal. Patient's laboratories are also normal. In addition the events that started this sound very consistent with anxiety and hyperventilation and that patient's hands were "clawing". Also patient is approximate 48 hours out from the onset making her not a candidate for at this time. I do not think the patient would benefit from being worked up further in the hospital as I do not believe that she has any type of hypercoagulable state that needs investigated. I do not think an MRI would be helpful. Also patient has no significant risk factors for stroke such as uncontrolled diabetes or hypertension. 11/06/19 18:00 - Vital Signs Vital signs: Temp Pulse Resp BP Pulse Ox 97.9 F 91 21 H 129/85 H 98 11/06/19 13:34 11/06/19 13:34 11/06/19 15:00 11/06/19 15:00 11/06/19 15:00 - Laboratory Result Diagrams: 11/06/19 14:05 11/06/19 14:05 Laboratory results interpreted by me: 11/06/19 14:05 RBC 3.62 L Hgb 11.0 L Hct 31.7 L RDW 15.2 H - Diagnostic Test Radiology reviewed: Image reviewed, Reports reviewed - EKG Interpretation by Me EKG shows normal: Sinus rhythm Rate: Normal - 89 Rhythm: NSR [place]/QRS: No: Right axis deviation, Left axis deviation Discharge - Discharge Clinical Impression: Marijuana abuse, Left arm weakness Speech abnormality Qualifiers: Speech disturbance type: unspecified speech disturbance Qualified Code(s): R47.9 - Unspecified speech disturbances Condition: Stable Disposition: HOME, SELF-CARE Additional Instructions: Please do not use marijuana or any other illegal drugs. Referrals: SREEDHAR PERES MD [Primary Care Provider] - Follow up in 3-5 days
--- NOTE | 2019-11-06 18:35 | EKG REPORT ---
SEVERITY:- NORMAL ECG - SINUS RHYTHM : Confirmed by: Osorio Finn MD 06-Nov-2019 18:34:43
[2019-11-06 18:37] VITALS: BP 118/70
== END 2019-11-06 18:36 | disposition home or self-care (01) ==
LOC: ER 13:24
DX: F12.10 Cannabis abuse, uncomplicated (principal); R47.9 Unspecified speech disturbances; R53.1 Weakness; F17.200 Nicotine dependence, unspecified, uncomplicated; I10 Essential (primary) hypertension; Z90.49 Acquired absence of other specified parts of digestive tract
CPT/HCPCS: 36415; 70450; 70496; 70498; 80053; 80307; 81001; 84484; 84703; 85025; 85610; 93005; 93010; 99285